=== PATIENT | female | born 2000 | race Caucasian/White ===

== ENCOUNTER 2022-09-27 22:45 | Inpatient (IN) | payer MEDICAID, SELFPAY ==
[2022-09-27] VITALS (7 sets, daily range): BP systolic 108–115; BP diastolic 60–74; PULSE 60–74; RESP 15–16; BMI 20.3
[2022-09-27 20:23] LABS: Actim Prom Positive
[2022-09-27 22:46] LABS: Basophils % 0.3 %; Eosinophils % 0.1 %; Hemoglobin 9.4 g/dL (11.5-15.3); Lymphocytes # 1.8 10^3/uL (1.5-6.5); Lymphocytes % 11.9 %; Mean Corpuscular HGB Conc 31.3 g/dL (30.0-36.0); Mean Corpuscular Hemoglobin 25.1 pg (28.0-34.0); Mean Corpuscular Volume 80.2 fl (81-99); Mean Platelet Volume 11.7 fL (7.4-10.4); Monocytes # 0.9 10^3/uL (0.2-0.9); Monocytes % 5.5 %; Neutrophils # 12.55 10^3/uL (1.8-8.0); Neutrophils % 81.8 %; Nucleated Red Blood Cells % 0 %; Platelet Count 294 10^3/cmm (130-400); Red Blood Count 3.74 10^6/uL (4.1-5.3); Red Cell Distribution Width 13.5 % (12.1-15.1); White Blood Count 15.4 10^3/uL (4.5-13.0)
[2022-09-27] MEDS: miSOPROStol 100 mcg tablet 25 MCG VAGINAL (23:18)
[2022-09-28] VITALS (52 sets, daily range): BP systolic 97–167; BP diastolic 47–92; PULSE 56–141; RESP 15–16; TEMP 36.6–36.8; O2SAT 97–100
[2022-09-28] MEDS: fentaNYL 50 mcg/mL INJ 2mL IVP (00:57)
[2022-09-28] MEDS: lactated ringers 1,000 ML 999 ML IV ×2 (01:15→02:25)
--- NOTE | 2022-09-28 02:19 | ANES.PREANE2 ---
Pre-Anesthetic Assessment Height/Weight: Height 1.6 m Weight 52.163 kg Pulse Resp BP Pulse Ox O2 Del Method 70 16 118/68 100 Room Air 09/28/22 02:16 09/28/22 00:57 09/28/22 02:14 09/28/22 02:16 09/27/22 22:15 Preop Diagnosis: Labor pain TRISTON Was Beta Aldair taken within 24 hours: N/A Was Clonidine taken within 24 hours: N/A Social No alcohol and No tobacco Exam alert, oriented x 3, clear to auscultation bilaterally and regular rate & rhythm Airway Submandibular: within normal limits Cervical ROM: within normal limits Mallampati: Class II Dentition: full History/ROS No significant history except as noted and No significant complaints Pulmonary None reported CV/HEM None reported None reported Hepatic None reported GI None reported Metabolic None reported Musc/skel None reported Neuropsych None reported Anesthetic Plan ASA status: 2 Anesthesia: Anesthesia Evaluation and Regional (specify below) Other: TRISTON Risk of > 500 ml blood loss (7ml/kg in children): No Medications/Allergies Current Medications Generic Name Dose Route Start Last Admin Trade Name Freq PRN Reason Stop Dose Admin Fentanyl 25 - 100 mcg 09/27/22 22:03 09/28/22 00:57 Fentanyl 50 Mcg/Ml Inj 2ml IVP 25 mcg Q1H PRN Administration SEVERE PAIN Lactated Ringer's 1,000 mls @ 999 mls/hr 09/28/22 01:07 09/28/22 01:15 Lactated Ringers IV 999 mls/hr .Q1H1M PRN Administration See label comments Misoprostol 25 mcg 09/27/22 23:07 09/27/22 23:18 Misoprostol 100 Mcg Tablet VAGINAL 25 mcg ONCE PRN Administration induction PFSH Anesthesia Female Reproductive History : 1 Data Anesthesia 09/27/22 22:17 Short CBC 09/27/22 Range/Units 22:17 WBC 15.4 H (4.5-13.0) 10^3/uL Hgb 9.4 L (11.5-15.3) g/dL Hct 30.0 L (37.0-47.0) % MCV 80.2 L (81-99) fl Plt Count 294 (130-400) 10^3/cmm Neut % (Auto) 81.8 % Neut # (Auto) 12.55 H (1.8-8.0) 10^3/uL Cardiac Studies: No Data to Display
--- NOTE | 2022-09-28 02:22 | ANES.PROC ---
Anesthesia Procedures Procedure/Date: 09/28/22 Epidural: Time Out Performed: Yes Consents Signed: Procedure Consent Consent: requested by attending/covering physician, from patient, risks and benefits reviewed and patient agrees to proceed Lumbar Level: L3-L4 Epidural position: sitting Epidural procedure: sterile prep of area, 1% lidocaine to numb the area, 18 g needle, neg for paresthesia, test dose given, 1.5% xylocaine 1:200k epi (4cc), 0.2% Ropivacaine bolus ml (4cc and Fentanyl 100mcg), placed PCEA, no systemic response, sterile dressing applied, L.U.D. no apparent complications and 0.2% Ropiavacaine @ mls/hr (10cc/hour) Additional Comments: OC at 5cm. Placed 2cm into epidural space. Pt tolerated well.
[2022-09-28] MEDS: ROPivacaine syringe 100 MG/50 ML SYRINGE 10 MG EPIDURAL (02:26)
[2022-09-28] MEDS: dextrose 5%-lactated ringers 1,000 ML 125 ML IV (03:27)
--- NOTE | 2022-09-28 05:29 | PM.OPHPUD ---
Labor & Delivery H&P Update Date of Procedure: September 28, 2022 Date H&P Performed: 09/25/22 Admission Diagnosis: 22-year-old 1 at 38 weeks estimated gestational age presenting to the hospital with spontaneous rupture of membranes Preop diagnosis: Labor pain Planned procedure: Spontaneous vaginal delivery Other information: The patient has had an unremarkable . Her blood type is O+. Her antibody screen was negative. She was GBS negative. She chose not to perform the glucose screen. The remainder of her infectious disease profile was within normal limits. The patient had some discharge earlier in the day. She arrived to the hospital complaining that she had had some leakage. Her actin PROM came back positive. She was having contractions every 3 to 5 minutes. She was admitted for augmentation due to rupture of membranes.. Related Problem List Diagnoses (1) 38 weeks gestation of : (2) Rupture of membranes: A&P Assessment and plan (1) 38 weeks gestation of : We will dose the patient with misoprostol 25 mcg x 1 per vagina. We will consider further augmentation depending on her response. Status: Acute (2) Rupture of membranes: Status: Acute
[2022-09-28] MEDS: oxytocin 30 UNIT/500 ML BAG 600 UNIT IV (05:49)
--- NOTE | 2022-09-28 06:03 | PM.DELIVERY ---
Delivery Note: Date of delivery: September 28, 2022 Pre-delivery diagnoses: 1. 22-year-old 1 female at 38 weeks estimated gestational age Post-delivery diagnoses: Status post spontaneous vaginal delivery Procedure: Spontaneous vaginal delivery Estimated blood loss (mL): 150 Pre-Delivery Course: The patient presented to the hospital with possible rupture of membranes and contractions about every 5 minutes. She was actin PROM positive and nitrazine negative. Because of her gestational age, and the possible rupture of membranes, we elected to augment her labor. She was given Cytotec 25 mcg x 1. An epidural was placed. She progressed to complete without difficulty. Delivery: DELIVERY: The patient progressed to complete without difficulty. She delivered a female with a weight of 6 pounds 0 ounces with Apgars of 8, 9. The baby was delivered from the JAN position and placed on the mother's abdomen. The cord was then clamped and cut. There was a nuchal cord x2. There was no meconium. The placenta and 3 vessel cord were delivered intact shortly thereafter. The perineum and vaginal vault were carefully examined. No lacerations were noted. Both the mother and the baby were in stable condition. Post-Delivery Status: Good A&P Assessment and plan (1) Spontaneous vaginal delivery: I anticipate routine care Coding Level of Care Code Acute Code for Chg Fwd Diagnoses Spontaneous vaginal delivery O80
--- NOTE | 2022-09-28 07:56 | ANE.PACU2 ---
Inpatient post-anesthesia follow up: Airway intact: Yes Vital signs: Temperature 98.0 F Pulse Rate 71 Respiratory Rate 16 Blood Pressure 167/69 Pulse Oximetry 100 Oxygen Delivery Me thod Room Air Oxygen Flow Rate Fraction of Inspir ed Oxygen Hydration adequate: Yes Nausea and vomiting: No Pain level: 2 Mental status: Baseline
[2022-09-28] MEDS: ibuprofen 800 mg tablet PO ×3 (08:30→20:41)
[2022-09-28] MEDS: docusate sodium 100 mg Capsule PO ×2 (08:31→20:41)
[2022-09-28] MEDS: prenatal vitamin Capsule 1 CAP PO (08:31)
[2022-09-28 17:57] LABS: Hemoglobin 8.4 g/dL (11.5-15.3); Mean Corpuscular HGB Conc 31.1 g/dL (30.0-36.0); Mean Corpuscular Hemoglobin 25.1 pg (28.0-34.0); Mean Corpuscular Volume 80.6 fl (81-99); Mean Platelet Volume 10.9 fL (7.4-10.4); Platelet Count 256 10^3/cmm (130-400); Red Blood Count 3.35 10^6/uL (4.1-5.3); Red Cell Distribution Width 13.9 % (12.1-15.1); White Blood Count 15.1 10^3/uL (4.5-13.0)
[2022-09-29 05:00] VITALS: BP 79/47; PULSE 83; RESP 14; TEMP 36.6; O2SAT 99
--- NOTE | 2022-09-29 07:35 | PM.OBGYDC ---
Discharge Providers GROCERY CLERK CHECKING Date of Admission: 09/27/22 22:45 Date of Discharge: 09/29/22 Attending Provider at Admission: Eugenio Webb MD Attending Provider at Discharge: Eugenio Webb MD Diagnoses at Discharge Discharge Diagnosis (1) Spontaneous vaginal delivery: Status: Acute Reason for Visit Reason for Visit: ctx 2-3 mins spsrt Hospital Course Hospital Course The patient presented to the hospital with possible rupture membranes and consistent contractions. She is actin PROM positive. Nitrazine negative. We elected to augment her labor with Cytotec. An epidural was placed. She progressed to complete and had an unremarkable vaginal delivery. Her course was also unremarkable. Her bleeding was within normal limits. She did breast-feed well, but was concerned because her baby continued to have agitation. As result she also fed her baby bottle as well. Her pain has been well controlled. There have been no concerns. Information Peripartum Data: Infant Delivery Method: Vaginal Physical Exam Narrative: The patient is alert. She appears comfortable. Her heart has a regular rate and rhythm with no murmurs appreciated. Lungs are clear to auscultation bilaterally. Her fundus is firm and below the umbilicus. Urinary Catheter Management: Harrell: Cath Placed During This Visit: yes, but has since been removed by the nurse Reason for Continuing Indwelling Catheter: Required Immobilization for Trauma or Surgery or Anesthesia Urinary Catheter Date of Insertion: 09/28/22 Urinary Catheter Time of Insertion: 03:00 Date Urinary Catheter Removed: 09/28/22 Time Urinary Catheter Discontinued: 05:15 Discharge Data Studies Completed and Pending Laboratory Results WBC 15.1 10^3/uL (4.5-13.0) H 09/28/22 17:50 RBC 3.35 10^6/uL (4.1-5.3) L 09/28/22 17:50 Hgb 8.4 g/dL (11.5-15.3) L 09/28/22 17:50 Hct 27.0 % (37.0-47.0) L 09/28/22 17:50 MCV 80.6 fl (81-99) L 09/28/22 17:50 MCH 25.1 pg (28.0-34.0) L 09/28/22 17:50 MCHC 31.1 g/dL (30.0-36.0) 09/28/22 17:50 RDW 13.9 % (12.1-15.1) 09/28/22 17:50 Plt Count 256 10^3/cmm (130-400) 09/28/22 17:50 MPV 10.9 fL (7.4-10.4) H 09/28/22 17:50 Neut % (Auto) 81.8 % 09/27/22 22:17 Lymph % (Auto) 11.9 % 09/27/22 22:17 [place] % (Auto) 5.5 % 09/27/22 22:17 Eos % (Auto) 0.1 % 09/27/22 22:17 Baso % (Auto) 0.3 % 09/27/22 22:17 Neut # (Auto) 12.55 10^3/uL (1.8-8.0) H 09/27/22 22:17 Lymph # (Auto) 1.8 10^3/uL (1.5-6.5) 09/27/22 22:17 [place] # (Auto) 0.9 10^3/uL (0.2-0.9) 09/27/22 22:17 Eos # (Auto) 0.0 10^3/uL (0.0-0.8) 09/27/22 22:17 Baso # (Auto) 0.0 10^3/uL (0.0-0.1) 09/27/22 22:17 Nucleated RBC % (auto) 0 % 09/27/22 22:17 Nucleated RBCs # 0.0 /100WBC 09/27/22 22:17 Insulin-like GF I Positive 09/27/22 19:50 Vitals Last Vital Signs Temp 97.8 F 09/29/22 05:00 Pulse 83 09/29/22 05:00 Resp 14 09/29/22 05:00 BP 79/47 09/29/22 05:00 Pulse Ox 99 09/29/22 05:00 O2 Del Method Room Air 09/29/22 05:00 Discharge Plan Discharge Patient Disposition: Home Prescriptions: New ibuprofen 800 mg Tablet 800 mg PO TID Qty: 45 0RF -U 106.5-1 mg Capsule 1 cap PO DAILY Qty: 90 0RF Discharge Orders: Discharge Order (Routine); Ordered 09/29/22 Ordered By: Eugenio Webb Referrals: Eugenio Webb MD [Physician] - 6 Weeks Discharge Diet: Usual diet Discharge Activity: Limit activity as instructed Patient Instructions: Depression (DC), Preeclampsia and Eclampsia After Delivery (GEN), Hemorrhage (DC), OB Discharge Report, OB Food/Drug Interaction Guide, OB Care at Home, Opioid Safety, OB Vaginal Deliveries, Abnormal Bleeding Discharge Attestations GROCERY CLERK CHECKING Time Spent in Discharge Care*: less than 30 min Coding Level of Care Code Acute Code for Chg Fwd Diagnoses Spontaneous vaginal delivery O80
[2022-09-29 09:38] VITALS: BP 104/72; PULSE 90; RESP 16; TEMP 36.8; O2SAT 100
== END 2022-09-29 09:42 | disposition home or self-care (01) | DRG 807 ==
LOC: OPOB 09-28 03:40 → OBGYN 09-28 03:40
PROVIDERS: Admitting Provider Family Medicine; Visit Provider Family Medicine
DX: O42.92 Full-term premature rupture of membranes, unspecified as to length of time between rupture and onset of labor (principal); Z37.0 Single live birth; O69.81X0 Labor and delivery complicated by cord around neck, without compression, not applicable or unspecified; Z3A.38 38 weeks gestation of pregnancy
CPT/HCPCS: 36415; 51702; 59025; 59409; 83986; 84112; 85025; 85027; 96374; 96376; 99211; J2590; J2795; J3010; J7040; J7120; J7121